=== PATIENT | female | born 1995 | race Caucasian/White ===

== ENCOUNTER 2018-04-26 16:33 | Emergency (ER) | payer OTHER ==
[~2018-04-26] VITALS: Ht 167.6 cm; Wt 63.6 kg
[2018-04-26 17:32] LABS: EOS % 0.3 % (1.0-5.0); HEMATOCRIT 36.4 % (37.0-47.0); HEMOGLOBIN 12.4 g/dL (12.5-16.0); LYMPH# 1.3 (1.50-4.00); MEAN CELL VOLUME 89 fl (78-100); MEAN CORPUSCULAR HEMOGLOBIN 30 pg (27-31); MEAN CORPUSCULAR HGB CONC 34 g/dL (33-37); MEAN PLATELET VOLUME 11.3 fl (7.4-10.4); MONO # 0.5 (0.20-0.80); NEU # 4.8 (1.40-6.50); PLATELET COUNT 256 K/mm3 (130-400); RED BLOOD COUNT 4.08 M/mm3 (4.10-5.30); RED CELL DISTRIBUTION WIDTH 11.6 % (11.5-14.5); WHITE BLOOD COUNT 6.7 K/mm3 (4.8-10.8)
[2018-04-26 17:41] LABS: ALBUMIN 4.8 g/dL (3.5-5.0); ALT/SGPT 24 U/L (9-52); AST-SGOT 18 U/L (14-36); CALCIUM 9.3 mg/dL (8.4-10.2); CARBON DIOXIDE 27 mmol/L (22-30); GLUCOSE 88 mg/dL (65-105); POTASSIUM 3.3 mmol/L (3.6-5.0); SODIUM 140 mmol/L (137-145); TOTAL PROTEIN 7.6 g/dL (6.3-8.2)
[2018-04-26 17:42] LABS: ACETAMINOPHEN < 4 ug/mL (10-30); ALCOHOL IN-HOUSE < 10 mg/dL
[2018-04-26 18:38] LABS: URINE APPEARANCE HAZY; URINE BILIRUBIN NEGATIVE (NEGATIVE); URINE COLOR YELLOW; URINE GLUCOSE NEGATIVE (NEGATIVE); URINE KETONE 2+ (NEGATIVE); URINE NITRATE NEGATIVE (NEGATIVE); URINE PROTEIN(semi-quant) 1+ mg/dL (NEGATIVE); URINE UROBILINOGEN NORMAL (NORMAL)
[2018-04-26 18:39] LABS: URINE BLOOD NEGATIVE (NEGATIVE); URINE LEUKOCYTE ESTERASE TRACE (NEGATIVE)
[2018-04-26 19:53] VITALS: BP 107/74
== END 2018-04-26 20:08 | disposition home or self-care (01) ==
LOC: ED 16:33
PROVIDERS: Physician Assistant
DX: T42.4X2A Poisoning by benzodiazepines, intentional self-harm, initial encounter (principal); F32.9 Major depressive disorder, single episode, unspecified; E87.6 Hypokalemia; F41.9 Anxiety disorder, unspecified; F17.210 Nicotine dependence, cigarettes, uncomplicated; Z90.49 Acquired absence of other specified parts of digestive tract

== ENCOUNTER 2019-08-28 22:21 | Emergency (ER) | payer OTHER ==
[~2019-08-28] VITALS: Ht 167.6 cm; Wt 56.8 kg
[~2019-08-28 22:21] MED LIST: FLAGYL500 M1 PO; ZITHROMAX500 M2 PO
[2019-08-28 22:48] LABS: BASO # 0.1 (0.02-0.10); EOS % 0.2 % (1.0-5.0); HEMATOCRIT 39.5 % (37.0-47.0); HEMOGLOBIN 13.3 g/dL (12.5-16.0); LYMPH# 2.4 (1.50-4.00); MEAN CELL VOLUME 85 fl (78-100); MEAN CORPUSCULAR HEMOGLOBIN 29 pg (27-31); MEAN CORPUSCULAR HGB CONC 34 g/dL (33-37); MONO # 0.9 (0.20-0.80); NEU # 8.9 (1.40-6.50); PLATELET COUNT 285 K/mm3 (130-400); RED BLOOD COUNT 4.65 M/mm3 (4.10-5.30); RED CELL DISTRIBUTION WIDTH 12.4 % (11.5-14.5); WHITE BLOOD COUNT 12.2 K/mm3 (4.8-10.8)
[2019-08-28 22:59] LABS: ALBUMIN 4.5 g/dL (3.5-5.0); POTASSIUM 4.2 mmol/L (3.5-5.1)
[2019-08-28 23:00] LABS: CALCIUM 9.7 mg/dL (8.3-10.5)
[2019-08-28 23:01] LABS: TOTAL PROTEIN 8.3 g/dL (6.4-8.3)
[2019-08-28 23:03] LABS: TOTAL BILIRUBIN 0.7 mg/dL (0.2-1.2)
[2019-08-28 23:47] LABS: URINE APPEARANCE CLOUDY; URINE BILIRUBIN NEGATIVE (NEGATIVE); URINE BLOOD TRACE (NEGATIVE); URINE COLOR YELLOW; URINE GLUCOSE NEGATIVE (NEGATIVE); URINE KETONE NEGATIVE (NEGATIVE); URINE LEUKOCYTE ESTERASE 2+ (NEGATIVE); URINE NITRATE NEGATIVE (NEGATIVE); URINE PROTEIN(semi-quant) TRACE mg/dL (NEGATIVE); URINE UROBILINOGEN 1 mg/dL (NORMAL)
[2019-08-28 23:48] LABS: URINE MUCUS PRESENT (NOT PRESENT)
[2019-08-29] MEDS ORDERED: FLAGYL500 M1 PO (00:12)
[2019-08-29 00:24] LABS: URINE APPEARANCE CLOUDY; URINE BILIRUBIN NEGATIVE (NEGATIVE); URINE BLOOD TRACE (NEGATIVE); URINE COLOR YELLOW; URINE GLUCOSE NEGATIVE (NEGATIVE); URINE KETONE NEGATIVE (NEGATIVE); URINE NITRATE NEGATIVE (NEGATIVE); URINE PROTEIN(semi-quant) TRACE mg/dL (NEGATIVE); URINE UROBILINOGEN 1 mg/dL (NORMAL)
[2019-08-29 00:25] LABS: URINE LEUKOCYTE ESTERASE 2+ (NEGATIVE); URINE MUCUS PRESENT (NOT PRESENT); URINE WBC 16-30 /hpf (0-3)
[2019-08-29 00:57] VITALS: BP 118/73
== END 2019-08-29 00:57 ==
LOC: ED 22:21
PROVIDERS: Internal Medicine; Nurse Practitioner Family
DX: F41.9 Anxiety disorder, unspecified (principal); A59.9 Trichomoniasis, unspecified; R10.13 Epigastric pain; F32.9 Major depressive disorder, single episode, unspecified; F17.210 Nicotine dependence, cigarettes, uncomplicated
CPT/HCPCS: J0696; J1885